=== PATIENT | female | born 2000 | race Caucasian/White ===

== ENCOUNTER 2019-10-19 19:22 | Emergency (ER) | payer BC, OTHER ==
--- NOTE | 2019-10-19 20:20 | UC ---
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 Last night throwing up. Today nauseous with fever of 100.2 Pleasant 19 yo female with cough x approx 2 weeks Most recent travel to [place], [place] a couple weeks ago for track meet. Pt is a student at [employer]. Classes are not in onsite session, she resides off campus. + cough productive clear whitish sputum No rash Some congestion, no sore throat + nausea with vomit x 3 last night. No vomit today. Not currently nauseus. 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 No sx no urinary sx (denies freq /urg / dysuria / hematuria) Lmp last week, normal I - History of Current Complaint Chief Complaint: UCRespiratory Stated Complaint: RESP Time Seen by Provider: 10/19/19 20:14 Hx Obtained From: Patient Hx Last Menstrual Period: 10/12/19 Pain Intensity: 6 - Allergy/Home Medications Allergies/Adverse Reactions: Allergies Allergy/AdvReac Type Severity Reaction Status Date / Time No Known Allergies Allergy Verified 10/19/19 20:13 Home Medications: Home Medications Control 1 tab PO DAILY 10/19/19 [History Confirmed 10/19/19] Ibuprofen TAB* [Advil TAB*] 400 mg PO Q6HR 10/19/19 [History Confirmed 10/19/19] PMH/Surg Hx/FS Hx/Imm Hx Previously Healthy: Yes - Surgical History Surgical History: None - Family History Known Family History: Positive: None - Social History Alcohol Use: Weekly Alcohol Amount: twice Substance Use Type: None Smoking Status (MU): Never Smoked Tobacco Review of Systems All Other Systems Reviewed And Are Negative: Yes Constitutional: Positive: Fever, Fatigue Skin: Positive: Negative Eyes: Positive: Negative ENT: Positive: Other - see hpi Respiratory: Positive: Other - see hpi Cardiovascular: Positive: Other - see hpi Gastrointestinal: Positive: Other - see hpi Genitourinary: Positive: Negative Motor: Positive: Negative Neurovascular: Positive: Negative Musculoskeletal: Positive: Negative Neurological/Mental Status: Positive: Negative Psychological: Positive: Negative Is Patient Immunocompromised?: No Physical Exam Triage Information Reviewed: Yes Appearance: Well-Nourished, Other: - sitting up, nad Eye Exam: Normal ENT: Positive: Pharyngeal erythema - no sores / exudates airway patent, TM dull Neck exam: Normal Neck: Positive: Supple, Nontender, No Lymphadenopathy Respiratory Exam: Other - + cough Respiratory: Positive: Lungs clear, No respiratory distress, No accessory muscle use Cardiovascular: Positive: RRR, No Murmur, Pulses Normal, Brisk Capillary Refill Abdominal Exam: Normal Abdomen Description: Positive: Nontender. 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 See attached instructions. Pt is aware to go to the ED for worse or new problems, particularly difficulty breathing. Questions as posed answered to the best of our ability. - Diagnoses Provider Diagnosis: Viral syndrome Discharge ED - Sign-Out/Discharge Documenting (check all that apply): Patient Departure All imaging exams completed and their final reports reviewed: No Studies - Discharge Plan Condition: Stable Disposition: HOME Patient Education Materials: Viral Syndrome (ED) Forms: COVID-19 Tested & Isolation Referrals: No Primary Care Phys,NOPCP [Primary Care Provider] - Additional Instructions: Very important to Hydrate. Influenza A /B negative Strep test negative Covid 19 pending Please refer to Self Quarantine instructions Please seek medical attention for worse or new problems. - Billing Disposition and Condition Condition: STABLE Disposition: Home
[2019-10-19 21:14] LABS: Influenza A Molecular Negative (Negative); Influenza B Molecular Negative (Negative)
[2019-10-19] MEDS ORDERED: Ondansetron ODT TAB* 4 MG PO ONE (21:19)
== END 2019-10-19 21:25 | disposition home or self-care (01) ==
LOC: UCEAST 19:22
DX: B34.9 Viral infection, unspecified (principal); R50.9 Fever, unspecified; R11.0 Nausea; Z20.828 Contact with and (suspected) exposure to other viral communicable diseases
CPT/HCPCS: 87635; 87651; 99212; A9270-GY; G0463